=== PATIENT | female | born 1995 | race Caucasian/White ===

== ENCOUNTER → 2021-10-01 | Outpatient (CLI) | payer OTHER ==
--- NOTE | 2021-10-01 15:56 | CARD ---
MR#: [id number] Date of Study: 10/01/2021 Ordering Physician: BLAIRE CHAND, Referring Physician: BLAIRE CHAND, Tech: Ivette Tinoco, CS APPROVED REPORT INDICATION Chest Pain Reason : Patient complained of pain PROCEDURE The patient underwent an Exercise Stress Test using the [facility] Protocol. Blood pressure, heart rate, a nd EKG were monitored. An Echocardiogram was performed by spray technician in four stages in quad fashion. At peak stress four se lected images were obtained and placed side by side with resting images for comparison. STRESS ECHO FINDINGS The resting Echocardiogram showed normal left ventricular systolic contractility with an estimated Ej ection Fraction of about 60 %. The Resting Echocardiogram showed normal augmentation of myocardial wall segments using a 16 segment model. The Stress Echocardiogram showed normal augmentation of myocardial wall segments using a 16 segment m stevie. The Stress Echocardiogram left ventricular systolic contractility has an estimated Ejection Fraction of about 75%. Test Type: Exercise Stress Nurse/Tech: Sangeeta Sabillon RN Test Indications: CP Cardiac History and Allergies: No known cardiac Medications: NONE Medical History: CP since COVID vaccine in 01/2021 Resting ECG: SR Resting Heart Rate: 78 bpm Resting Blood Pressure: 129/76mmHg Nurse/Tech Notes Patient states her CP was "normal" for her. Pressure 2/10, not sharp. Lungs CTA, hear tones normal. Stress Symptoms Chest pressure intensified at approx. 14:00; not sharp. 6/10 pain. Treadmill stopped. Slight ST depre ssion in lead II, AVF during stress period that resolved during recovery. VS stable. Patient states t his chest pain is "typical", no change in baseline. POST EXERCISE Reason for Termination: Chest pain Target HR: 164 Max HR: 191 bpm 99% of Maximum Predicted HR: 193 bpm Exercise duration: 14:55 min:sec, Stage Exercise capacity: 14.8METs Max Blood Pressure: 145/80mmHg Blood Pressure response to exercise: Normal blood pressure response during stress. Heart Rate response to exercise: normal response Chest Pain: Yes. pressure, typical for patient. not sharp. Arrhythmia: No. ST Change: No. INTERPRETATION Stress EKG Conclusion: Baseline EKG showed sinus rhythm. No ischemic changes at peak stress. No arr hythmias. <Conclusion> Treadmill exercise stress echocardiogram did not show any evidence of ischemia or infarct. Normal left ventricle systolic function with ejection fraction estimated at 60%. Patient had good activity tolerance. Low risk for cardiac events. Signed by : Blaire Chand, Electronically Approved : 10/01/2021 15:56:15
== END ==
LOC: ECHO 12:36
PROVIDERS: ATTEND Internal Medicine Cardiovascular Disease
DX: R07.9 Chest pain, unspecified (principal)
CPT/HCPCS: 93017; 93350